=== PATIENT | female | born 1970 | race Two or more races ===

== ENCOUNTER 2019-05-01 08:31 | Day surgery (SDC) | payer OTHER | END 2019-05-01 17:40 | disposition home or self-care (01) | LOC: AMB-ENDOS 08:31 | DX: K63.89 Other specified diseases of intestine (principal); K64.8 Other hemorrhoids; Z12.11 Encounter for screening for malignant neoplasm of colon; Z12.12 Encounter for screening for malignant neoplasm of rectum ==

== ENCOUNTER 2023-04-24 09:41 | Outpatient (CLI) | payer OTHER | END 2023-04-24 09:44 | disposition home or self-care (01) | LOC: RAD 09:41 | PROVIDERS: ATTEND Colon & Rectal Surgery | DX: K64.2 Third degree hemorrhoids (principal); K92.1 Melena ==

== ENCOUNTER 2023-05-10 08:26 | Day surgery (SDC) | payer OTHER ==
[2023-05-02 17:02] LABS: INR 1.16
== END 2023-05-10 16:55 | disposition home or self-care (01) ==
LOC: CIR.AMB 08:26
PROVIDERS: ATTEND Colon & Rectal Surgery
DX: K64.2 Third degree hemorrhoids (principal); K64.4 Residual hemorrhoidal skin tags; K64.8 Other hemorrhoids; Z20.822 Contact with and (suspected) exposure to COVID-19